=== PATIENT | male | born 1935 | race Caucasian/White ===

== ENCOUNTER 2020-10-01 20:13 | Observation (INO) | payer OTHER ==
[~2020-10-01] VITALS: Ht 180.3 cm; Wt 126.0 kg
[2020-10-01] MEDS ORDERED: LOSA25 PO (21:22)
[2020-10-01] MEDS ORDERED: HYDCHL25 PO (21:23)
[2020-10-01] MEDS ORDERED: LOW DOSE ASPIRI81 M1 PO (21:23)
[2020-10-01] MEDS ORDERED: AZIT250 PO (21:24)
[2020-10-01 23:29] LABS: BASOPHILS ABSOLUTE AUTO 0.04 K/mm3 (0.00-0.23); BASOPHILS PERCENT AUTO 0 % (0-2); EOSINOPHILS ABSOLUTE AUTO 0.37 K/mm3 (0.00-0.68); EOSINOPHILS PERCENT AUTO 4 % (0-6); Hematocrit 40.8 % (37.0-53.0); Hemoglobin 13.1 g/dL (13.5-17.5); IMMATURE GRAN ABSOLUTE AUTO 0.04 K/mm3 (0.00-0.10); IMMATURE GRAN PERCENT AUTO 0 % (0-1); LYMPHOCYTES ABSOLUTE AUTO 0.91 K/mm3 (0.84-5.20); LYMPHOCYTES PERCENT AUTO 9 % (21-46); MONOCYTES ABSOLUTE AUTO 0.67 K/mm3 (0.16-1.47); MONOCYTES PERCENT AUTO 6 % (4-13); Mean Corpuscular HGB 28.4 pg (26.0-34.0); Mean Corpuscular HGB Conc 32.1 g/dL (31.5-36.5); Mean Corpuscular Volume 88 fL (80-100); Mean Platelet Volume 9.8 fL (9.1-12.4); NEUTROPHILS ABSOLUTE AUTO 8.63 K/mm3 (1.96-9.15); NEUTROPHILS PERCENT AUTO 81 % (41-73); Platelet Count 250 K/mm3 (150-400); RDW Coefficient Variation 13.7 % (11.7-14.2); RDW Standard Deviation 44.1 fL (35.1-46.3); Red Blood Cell Count 4.62 M/mm3 (4.30-5.90); White Blood Cell Count 10.66 K/mm3 (4.00-11.30)
[2020-10-01 23:49] LABS: Alanine Aminotransfer (ALT/SGP 23 U/L (12-78); Albumin, Blood 3.1 g/dL (3.4-5.0); Albumin/Globulin Ratio 0.8 (0.8-1.8); Alk Phos 181 U/L (50-136); Anion Gap 6 mmol/L (6-16); Aspartate Aminotrans (AST/SGOT 11 U/L (12-37); Bilirubin, Total 0.5 mg/dL (0.1-1.0); Blood Urea Nitrogen 19 mg/dL (8-24); Bun/Creatinine Ratio 15.8 (12.0-20.0); CO2, Blood 29 mmol/L (21-32); Calcium, Blood 8.7 mg/dL (8.5-10.1); Chloride, Blood 107 mmol/L (98-108); Globulin, Blood 4.1 g/dL (2.2-4.0); Glomerular Filtration Rate >60 (60-); Glucose, Blood 110 mg/dL (70-99); Potassium, Blood 4.4 mmol/L (3.5-5.5); Sodium, Blood 142 mmol/L (136-145); Total Protein, Blood 7.2 g/dL (6.4-8.2); Troponin I <0.015 ng/mL (0.000-0.040)
[2020-10-02 04:48] LABS: International Normalized Ratio 1.1; Prothrombin Time Results 11.7 Sec (9.7-11.5)
--- NOTE | 2020-10-02 07:33 | NUR ---
SHIFT SUMMARY PATIENT ARRIVED TO ROOM 313 VIA STRETCHER AROUND 0345. HE IS ALERT AND ORIENTED X4. ABLE TO SELF AMBULATE TO THE BATHROOM AND BACK TO HIS BED. HAD NO COMPLAINTS OF PAIN OR NAUSEA. HAD SOME DYSPNEA ON EXHERTION. IV PATENT AND FLUSHED. BED IN LOWEST POSITION WITH WHEELS LOCKED. CALL LIGHT WITHIN REACH. REPORT GIVEN TO ONCOMING RN.
[2020-10-02 10:36] LABS: Influenza A, PCR NEGATIVE (NEGATIVE); Influenza B, PCR NEGATIVE (NEGATIVE); Resp Syncytial Virus, PCR NEGATIVE (NEGATIVE); SARS-Cov-2 (COVID-19) PCR, MMC NEGATIVE (NEGATIVE)
[2020-10-02 12:35] LABS: Automated BF RBC Count 0.013 M/mm3 (0-0); Automated BF WBC Count 2.494 K/mm3 (0-999); Body Fluid WBC Count 2494 /mm3 (0-999); RBC Count, Body Fluid 13000 /mm3 (0-0)
[2020-10-02 12:47] LABS: Albumin, Body Fluid 2.2 g/dL
[2020-10-02 12:52] LABS: pH, Body Fluid 7.5
[2020-10-02 12:55] LABS: Lactate Dehydrogenase, Body Fl 205 U/L
[2020-10-02 13:00] LABS: Protein, Body Fluid 4.1 g/dL
[2020-10-02 13:17] LABS: Total Cell Count, Body Fluid 100
[2020-10-02 13:18] LABS: Appearance, Body Fluid Hazy (Clear); Color, Body Fluid L Yellow (None-Yellow)
--- NOTE | 2020-10-02 18:10 | NUR ---
SHIFT SUMMARY PT HAD THORACENTESIS OF LEFT LUNG AND 1500ML REMOVED THIS AFTERNOON. PT HAD TWO SMALL BMS AND STILL CONTINUES TO COMPLAIN OF FEELING CONSTIPATION. MIRALAX GIVEN AND PT RECEIVING MORE BOWEL CARE THIS EVENING. PT UP TO BATHROOM WITHOUT DIFFICULTY. CONTINUES TO BE ON ROOM AIR. NO ACUTE CHANGES. POSSIBLE DISCHARGE TOMORROW.
--- NOTE | 2020-10-03 04:38 | NUR ---
SHIFT SUMMARY NO ACUTE CHANGES, NO C/O PAIN/DISCOMFORT, BOWEL CARE CONT, PT UP TO BATHROOM INDEP, SLEPT T/O THE NIGHT, CALL LIGHT IN REACH, WILL CONT TO MONITOR UNTIL REPORT GIVEN TO DAY RN.
[2020-10-03] MEDS ORDERED: AMOCLA875 PO (16:53)
--- NOTE | 2020-10-03 18:01 | NUR ---
DISCHARGE PT DISCHARGED TO HOME. THIS RN EXPLAINED DISCHARGE INSTRUCTIONS AND MEDICATIONS TO PT AND HE REPORTS HE UNDERSTANDS. TONE TORRES RN CALLED PULMONOLOGY OFFICE FOR CONSULT. THEY SAID THEY WOULD CALL THE PT. IV REMOVED WITHOUT DIFFICULTY. MEDICATION FAXED TO [facility] PER PT REQUEST. PT TRANSFERRED TO PRIVATE VEHICLE VIA WHEELCHAIR BY EARLY CHILDHOOD DIRECTOR. BELONGINGS WITH PT.
[2020-11-22] MEDS ORDERED: MULVITA PO (10:15)
[2020-11-22] MEDS ORDERED: Vitamin C100 M1 PO (10:16)
== END 2020-10-03 17:33 | disposition home or self-care (01) ==
LOC: ER 20:13 → MEDS 20:24
PROVIDERS: Emergency Medicine; Hospitalist; ADMIT Internal Medicine
DX: J96.01 Acute respiratory failure with hypoxia (principal); J90 Pleural effusion, not elsewhere classified; I10 Essential (primary) hypertension; K59.00 Constipation, unspecified; I45.2 Bifascicular block; Z85.46 Personal history of malignant neoplasm of prostate; Z20.822 Contact with and (suspected) exposure to COVID-19; Z79.82 Long term (current) use of aspirin
CPT/HCPCS: 0241U; 32555; 36415; 71045; 71260; 74177; 80053; 82042; 83615; 83690; 83880; 83986; 84157; 84484; 85025; 85610; 87070; 87075; 87076; 87205; 88108; 88305; 88341; 88342; 89051; 93005; 93010; 99285-25; A9270; G0378; Q9967

== ENCOUNTER 2020-11-15 09:12 | Emergency (ER) | payer OTHER ==
[~2020-11-15] VITALS: Ht 182.9 cm; Wt 117.9 kg
[~2020-11-15 09:12] MED LIST: AMOCLA875 PO; AZIT250 PO; HYDCHL25 PO; LOSA25 PO; LOW DOSE ASPIRI81 M1 PO
[2020-11-15] MEDS ORDERED: LORAZEPAM0.5 MG PO (09:34)
[2020-11-15 09:48] LABS: BASOPHILS ABSOLUTE AUTO 0.02 K/mm3 (0.00-0.23); BASOPHILS PERCENT AUTO 0 % (0-2); EOSINOPHILS ABSOLUTE AUTO 0.17 K/mm3 (0.00-0.68); EOSINOPHILS PERCENT AUTO 3 % (0-6); Hematocrit 43.9 % (37.0-53.0); Hemoglobin 14.1 g/dL (13.5-17.5); IMMATURE GRAN ABSOLUTE AUTO 0.02 K/mm3 (0.00-0.10); IMMATURE GRAN PERCENT AUTO 0 % (0-1); LYMPHOCYTES ABSOLUTE AUTO 0.79 K/mm3 (0.84-5.20); LYMPHOCYTES PERCENT AUTO 12 % (21-46); MONOCYTES ABSOLUTE AUTO 0.43 K/mm3 (0.16-1.47); MONOCYTES PERCENT AUTO 7 % (4-13); Mean Corpuscular HGB 29.1 pg (26.0-34.0); Mean Corpuscular HGB Conc 32.1 g/dL (31.5-36.5); Mean Corpuscular Volume 91 fL (80-100); NEUTROPHILS ABSOLUTE AUTO 4.96 K/mm3 (1.96-9.15); NEUTROPHILS PERCENT AUTO 78 % (41-73); Platelet Count 213 K/mm3 (150-400); RDW Coefficient Variation 13.1 % (11.7-14.2); RDW Standard Deviation 43.3 fL (35.1-46.3); Red Blood Cell Count 4.84 M/mm3 (4.30-5.90); White Blood Cell Count 6.39 K/mm3 (4.00-11.30)
[2020-11-15 10:12] LABS: Albumin, Blood 3.2 g/dL (3.4-5.0); Albumin/Globulin Ratio 0.7 (0.8-1.8); Bilirubin, Total 0.6 mg/dL (0.1-1.0); Bun/Creatinine Ratio 17.3 (12.0-20.0); Calcium, Blood 8.9 mg/dL (8.5-10.1); Creatinine, Blood 1.27 mg/dL (0.60-1.20); Globulin, Blood 4.3 g/dL (2.2-4.0); Potassium, Blood 4.5 mmol/L (3.5-5.5); Total Protein, Blood 7.5 g/dL (6.4-8.2)
[2020-11-15 10:55] LABS: International Normalized Ratio 1.02
[2020-11-15 11:22] LABS: Influenza A, PCR NEGATIVE (NEGATIVE); Influenza B, PCR NEGATIVE (NEGATIVE); Resp Syncytial Virus, PCR NEGATIVE (NEGATIVE); SARS-Cov-2 (COVID-19) PCR, MMC NEGATIVE (NEGATIVE)
[2020-11-22] MEDS ORDERED: MULVITA PO (10:15)
[2020-11-22] MEDS ORDERED: Vitamin C100 M1 PO (10:16)
== END 2020-11-15 16:04 | disposition home or self-care (01) ==
LOC: ER 09:12
PROVIDERS: Emergency Medicine
DX: J90 Pleural effusion, not elsewhere classified (principal); Z98.890 Other specified postprocedural states; Z20.822 Contact with and (suspected) exposure to COVID-19; Z79.82 Long term (current) use of aspirin; Z79.899 Other long term (current) drug therapy
CPT/HCPCS: 0241U; 32555; 36415; 71045; 80053; 85025; 85610; 85730; 93005; 93010; 99285-25

== ENCOUNTER 2020-11-23 07:01 | Day surgery (SDC) | payer OTHER ==
[~2020-11-23] VITALS: Ht 180.3 cm; Wt 119.3 kg
[~2020-11-23 07:01] MED LIST changes: +LORAZEPAM0.5 MG PO; +MULVITA PO; +Vitamin C100 M1 PO
--- NOTE | 2020-11-23 08:44 | NUR ---
INTO SDS VIA W/C.PT ABLE TO AMBULATE SHORT DISTANCES. History, Chart, Medications and Allergies reviewed before start of procedure.Patient confirms NPO status and agrees with scheduled surgery. Patient reports completing Chlorhexadine shower X2 prior to admission to hospital.Surgical site prepped with 2% Chlorhexidine cloth wipe.LUNGS DIMINISED BLL.
--- NOTE | 2020-11-23 12:31 | NUR ---
Patient up to Ambulate independently. Gait steady. Discharge instructions reviewed with patient. Patient verbalizes understanding. Copy given to patient to take home. Patient States Post-Procedure ride home has been arranged. Discharged via wheelchair to private car for ride home. CHECKED WITH DR. DOMINGUEZ TO MAKE SURE ALL PAPERWORK WAS COMPLETED FOR THE PLEURX CATHETER. DISCUSSED WITH PATIENT WHAT DR. ULLOA RELAYED, THAT HOME HEALTH AND HOSPICE WOULD ALSO SHOW AND INSTRUCT HIM ON HOW TO CARE FOR HIS DRESSING AND CATHETER. INCLUDED IN DISCHARGE PLANNING. PATIENT AND INSTRUCTED TO FOLLOW UP WITH INSTRUCTION VIDEO THEY WERE GIVEN WITH INFORMATION ABOUT THE PLEURX CATHETER. ALL BELONGINGS RETURNED TO PATIENT.
== END 2020-11-23 22:51 | disposition home or self-care (01) ==
LOC: ORSCMMR 07:01 → ORD 07:30 → ORSCMMR 07:30
PROVIDERS: Surgery
PROC: 0W983ZZ Drainage of Chest Wall, Percutaneous Approach (ICD-10-PCS; principal; 2020-11-23 08:30)
DX: J91.0 Malignant pleural effusion (principal); Z85.46 Personal history of malignant neoplasm of prostate; I10 Essential (primary) hypertension; E78.5 Hyperlipidemia, unspecified; N18.30 Chronic kidney disease, stage 3 unspecified; E66.01 Morbid (severe) obesity due to excess calories; Z68.36 Body mass index [BMI] 36.0-36.9, adult; Z79.899 Other long term (current) drug therapy; Z79.82 Long term (current) use of aspirin
CPT/HCPCS: 71045; 76998; C1729; J0690; J1100; J2370; J2405; J2704; J3010; J7120